=== PATIENT | male | born 2000 | race Caucasian/White ===

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

== ENCOUNTER → 2021-10-22 | Outpatient (REF) | payer OTHER ==
[~2021-10-22] MED LIST: IBUP-1022 PO; PERC5TAB12 PO
== END ==
LOC: M LAB REF 16:30
PROVIDERS: ATTEND Physician Assistant
DX: R05.9 Cough, unspecified (principal)

== ENCOUNTER 2021-12-09 18:53 | Emergency (ER) | payer OTHER ==
[~2021-12-09] VITALS: Ht 182.9 cm; Wt 97.9 kg
[2021-12-09] MEDS ORDERED: BENA25CA4 PO (18:59)
[2021-12-09] MEDS ORDERED: VENL37.598 (18:59)
[2021-12-09] MEDS ORDERED: HYDR-643 (18:59)
[2021-12-09 21:40] VITALS: BP 120/62
== END 2021-12-09 21:41 | disposition home or self-care (01) ==
LOC: M ED 18:53
DX: R10.9 Unspecified abdominal pain (principal); T45.2X5A Adverse effect of vitamins, initial encounter; F17.200 Nicotine dependence, unspecified, uncomplicated; Z88.0 Allergy status to penicillin; Z88.8 Allergy status to other drugs, medicaments and biological substances; Z79.899 Other long term (current) drug therapy

== ENCOUNTER → 2022-12-01 | Outpatient (CLI) | payer OTHER ==
[~2022-12-01] MED LIST changes: +BENA25CA4 PO; +HYDR-643; +VENL37.598
== END ==
LOC: M RAD 13:32
PROVIDERS: ATTEND Physician Assistant Medical
DX: K59.00 Constipation, unspecified (principal); R10.9 Unspecified abdominal pain

== ENCOUNTER → 2023-04-23 | Outpatient (CLI) | payer OTHER | LOC: M RAD 17:55 | PROVIDERS: ATTEND Physician Assistant | DX: S02.2XXA Fracture of nasal bones, initial encounter for closed fracture (principal); W18.30XA Fall on same level, unspecified, initial encounter; Y92.009 Unspecified place in unspecified non-institutional (private) residence as the place of occurrence of the external cause ==

== ENCOUNTER → 2023-08-16 | Outpatient (REF) | payer OTHER, BC ==
[2023-08-16 18:27] LABS: HEMOGLOBIN A1c 4.6 % (4.0-6.0)
[2023-08-16 18:52] LABS: BLOOD UREA NITROGEN 11 MG/DL (9-23); CALCIUM LEVEL 9.4 MG/DL (8.5-10.1); CARBON DIOXIDE LEVEL 26 MMOL/L (20-31); CHLORIDE LEVEL 105 MMOL/L (98-107); CHOLESTEROL LEVEL 132 MG/DL (<200); CHOLESTEROL RISK RATIO 3.04 (<5); CREATININE FOR GFR 0.94 MG/DL (0.70-1.30); GLOMERULAR FILTRATION RATE > 60.0 (>60); GLUCOSE, FASTING 93 MG/DL (60-100); HDL CHOLESTEROL 43.3 MG/DL (>40); LDL CHOLESTEROL 73.5 MG/DL (<100); NON-HDL-C 88.7 MG/DL; SODIUM LEVEL 139 MMOL/L (136-145); TRIGLYCERIDES LEVEL 76 MG/DL (<150)
== END ==
LOC: M LAB REF 16:51
PROVIDERS: ATTEND Nurse Practitioner Family
DX: F41.8 Other specified anxiety disorders (principal); Z13.220 Encounter for screening for lipoid disorders

== ENCOUNTER → 2025-05-30 | Outpatient (REF) | payer OTHER ==
[2025-05-30 18:51] LABS: C REACTIVE PROTEIN QUANTITATIV < 0.50 MG/DL (<1.0)
[2025-05-30 18:52] LABS: ALT/SGPT 17 U/L (7.0-40); AST/SGOT 14 U/L (<34); CALCIUM LEVEL 9.3 MG/DL (8.5-10.1); CARBON DIOXIDE LEVEL 29 MMOL/L (20-31); CHLORIDE LEVEL 102 MMOL/L (98-107); CREATININE FOR GFR 0.94 MG/DL (0.70-1.30); GLOMERULAR FILTRATION RATE > 90.0 (>60); POTASSIUM SERUM 4.2 MMOL/L (3.5-5.1); SODIUM LEVEL 141 MMOL/L (136-145)
[2025-05-30 18:54] LABS: BASO # 0.0 10^3/uL (0.0-0.2); BASO % 0.5 % (0.0-1.0); EOS # 0.1 10^3/uL (0.0-0.5); EOS % 2.9 % (0.0-3.0); LYMPH # 1.9 10^3/uL (1.5-5.0); LYMPH % 44.9 % (24.0-44.0); MONO # 0.4 10^3/uL (0.0-0.8); MONO % 9.2 % (2.0-8.0); NEUTROPHILS # 1.8 10^3/uL (1.5-8.5); NEUTROPHILS % 42.5 % (36.0-66.0); PLATELET COUNT, AUTOMATED 263 10^3/uL (150-450)
[2025-05-30 19:03] LABS: ERYTHROCYTE SEDIMENTATION RATE 5 mm/hr (0-15)
== END ==
LOC: M SFHCLERA 09:58
PROVIDERS: ATTEND Internal Medicine
DX: R10.84 Generalized abdominal pain (principal); F90.9 Attention-deficit hyperactivity disorder, unspecified type

== ENCOUNTER → 2025-10-25 | Outpatient (REF) | payer OTHER ==
[~2025-10-25] MED LIST changes: -IBUP-1022 PO; +IBUP600T42 PO
[2025-10-25 19:36] LABS: BASO # 0.0 10^3/uL (0.0-0.2); BASO % 0.8 % (0.0-1.0); EOS # 0.1 10^3/uL (0.0-0.5); EOS % 1.6 % (0.0-3.0); LYMPH # 1.9 10^3/uL (1.5-5.0); LYMPH % 37.4 % (24.0-44.0); MONO # 0.5 10^3/uL (0.0-0.8); MONO % 10.3 % (2.0-8.0); NEUTROPHILS # 2.5 10^3/uL (1.5-8.5); NEUTROPHILS % 49.7 % (36.0-66.0); PLATELET COUNT, AUTOMATED 305 10^3/uL (150-450)
[2025-10-25 19:38] LABS: ALT/SGPT 17 U/L (7.0-40); AST/SGOT 16 U/L (<34); C REACTIVE PROTEIN QUANTITATIV 1.16 MG/DL (<1.0); CALCIUM LEVEL 9.2 MG/DL (8.5-10.1); CARBON DIOXIDE LEVEL 31 MMOL/L (20-31); CHLORIDE LEVEL 102 MMOL/L (98-107); CREATININE FOR GFR 1.00 MG/DL (0.70-1.30); GLOMERULAR FILTRATION RATE > 90.0 (>60); POTASSIUM SERUM 4.0 MMOL/L (3.5-5.1); RHEUMATOID FACTOR QUANT 6.0 IU/ML (<14); SODIUM LEVEL 141 MMOL/L (136-145)
[2025-11-02 14:42] LABS: HLA-B27 Negative (Negative)
== END ==
LOC: M SFHCLERA 09:46
PROVIDERS: ATTEND Internal Medicine
DX: M25.50 Pain in unspecified joint (principal)